=== PATIENT | female | born 1955 | race Caucasian/White ===

== ENCOUNTER 2021-05-21 07:05 | Day surgery (SDC) | payer OTHER | END 2021-05-21 11:30 | disposition home or self-care (01) | LOC: AMB-ENDOS 07:05 | PROVIDERS: ATTEND Surgery | DX: K57.32 Diverticulitis of large intestine without perforation or abscess without bleeding (principal); K64.8 Other hemorrhoids; Z20.822 Contact with and (suspected) exposure to COVID-19 ==